=== PATIENT | female | born 1980 | race Caucasian/White ===

== ENCOUNTER 2023-02-03 09:44 | Inpatient (IN) | payer OTHER, SELFPAY ==
--- NOTE | 2023-01-28 10:46 | PCM.HP.BLA ---
History and Physical Date of Admission: 01/31/23 Pre-Op History and Physical HPI: The patient is a 42 year old female presenting for pre-operative visit. She is scheduled for and bilateral salpingectomy for repeat , AMA, CHTN, gestational diabetes, obesity and desires sterilization on January 31, 2023. Procedure discussed along with risks, benefits and complications. Other alternatives discussed for management. Consent form signed? Yes. PAST MEDICAL HISTORY Diagnosis Date ? Anemia ? Carpal tunnel syndrome ? Chronic hypertension during , antepartum 09/14/2022 ? Diabetes, gestational ? Diet controlled gestational diabetes mellitus (GDM) in third trimester 11/17/2022 ? HBV (hepatitis B virus) infection 2022 ? Heel spur ? Hepatitis B affecting 09/17/2022 ? Irregular menses ? Other specified viral warts ? Psoriasis ? Rosacea ? Urinary calculus, unspecified 2006 Renal stones PAST SURGICAL HISTORY Procedure Laterality Date ? DELIVERY ONLY 1996,2007,2012 , low cervical ? LITHOTRIPSY XTRCORP SHOCK WAVE Lithotripsy ? TONSILLECTOMY PRIMARY/SECONDARY <AGE 12 07/11/2002 Tonsillectomy Current Outpatient Medications Medication Sig Dispense Refill ? blood sugar diagnostic test strip 1 Strip four times daily. Use as instructed 120 Strip 9 ? Lancets lancets 1 Each four times daily. Use as instructed 120 Each 9 ? calcipotriene/betamethasone (ENSTILAR TOPICAL) Apply to affected area. (Patient not taking: Reported on 01/12/2023) ? aspirin, enteric coated (ECOTRIN LOW STRENGTH) 81 mg EC tablet Take 1 tablet by mouth once daily. 90 tablet 3 ? Blood Pressure Test Kit-Large (QUICK RESPONSE BP MONITOR) Use as directed 1 Each 0 ? prental multivitamin 27 mg iron- 800 mcg tablet Take 1 tablet by mouth once daily. ? Clobetasol Propionate 0.05 % topical foam Apply to affected area twice daily. ? metroNIDAZOLE 0.75 % cream No current facility-administered medications for this visit. ALLERGIES: Seasonal [Other] PERSONAL HISTORY: Social History Tobacco Use ? Smoking status: Former Years: 10.00 Types: Cigarettes Quit date: 09/29/2006 Years since quittin.3 ? Smokeless tobacco: Never Vaping Use ? Vaping Use: Never used Substance Use Topics ? Alcohol use: Not Currently Comment: rarely, NOT WHILE ? Drug use: No FAMILY HISTORY: FAMILY HISTORY Problem Relation Age of Onset ? No Known Problems Mother ? Asthma Father ? No Known Problems Sister ? Psoriasis Brother ? Rheumatologic disease Brother ? No Known Problems Brother ? No Known Problems Maternal Grandmother ? Lung Cancer Maternal Grandfather ? Breast Cancer Paternal Grandmother ? Diabetes Paternal Grandmother ? No Known Problems Paternal Grandfather ? Asthma Daughter REVIEW OF SYMPTOMS: negative except as noted above PHYSICAL EXAMINATION: VITALS: Blood pressure 118/82, last menstrual period 04/23/2022. GENERAL: The patient is well nourished, well hydrated in no acute distress. , The patient is oriented to time, place, and person. NECK: full range of motion IMPRESSION: 42-year-old G7, P5 at 38.1 weeks with gestational diabetes not controlled but at this point not placed on insulin, advanced maternal age, CHTN, obesity for repeat section and sterilization PLAN: Repeat section bilateral salpingectomy performed by Dr. Amna Garcia at 38.4 weeks gestation. Pt has been counseled on risks/benefits and alternatives of surgery including but not limited to anesthesia, bleeding, infection, injury to pelvic structures including bowel, bladder, ureters and vessels. Pt wishes to proceed with surgery at this time. Risk of blood transfusion reviewed with patient. Discussed that this is a permanent procedure and risk of regret was reviewed. I have reviewed and updated past medical and surgical history, medications and allergies Cata Golden MD
[2023-02-03] VITALS (21 sets, daily range): BP systolic 102–148; BP diastolic 52–83; PULSE 58–92; RESP 14–18; TEMP 3.1–37.5; O2SAT 96–98; BMI 44.0
--- NOTE | 2023-02-03 | FALS_PTH ---
PATIENT: FRANKY GAMINO LOC: [facility] U#:[id number] AGE/SX: 42/F ROOM: WP010 RE02/03/[address]: Dr. Amna Garcia MD : 1980 BED: 1 DIS: 02/04/2023 SPEC #: [id number] RECD: 02/04/23 09:52 STATUS: DANG ESCUDERO #: [id number] MALOU: 02/03/23 00:[address]: Amna Garcia DEPT: SURGICAL PATHOLOGY RECD BY: Reed Najera ENTERED: 02/04/23 09:52 SP TYPE: FALL TUBES OTHR DR: No Primary Care Phys Tissues: Fallopian tube Procedures: Surgery Specimen Level II HEADER OPERATION: Tubal ligation PRE-OP DIAGNOSIS: Sterilization TISSUE SUBMITTED: Fallopian tubes MICROSCOPIC DIAGNOSIS Bilateral fallopian tubes, salpingectomy: Bilateral fallopian tubes, no pathologic diagnosis. See comment. ARVIND:aruna 02/07/2023 COMMENT The right fallopian tube also shows focal decidual changes. MICROSCOPIC DESCRIPTION Slides are reviewed. GROSS DESCRIPTION Received in fixative is one container labeled with the patient's name and designated bilateral fallopian tubes, left suture. The specimen consists of bilateral fallopian tubes including fimbrial ends. The right fallopian tube measures 4.0 cm in length and up to 1.0 cm in diameter and the left fallopian tube measures 4.0 cm in length and 0.7 cm in diameter. Sections reveal unremarkable cut surfaces. Linemarker sections are submitted in two cassettes as follows: 1 - right fallopian tube, 2 - left fallopian tube. / SJ:rg 02/04/2023 TC:4 CPT: 83313 x2
[2023-02-03] MEDS: Lactated Ringers 1,000 ML 999 ML IV (10:30)
[2023-02-03 10:50] LABS: Absolute Lymphocyte Count 1.35 X10^3/uL (0.83-4.51); Absolute Neutrophil Count 5.1 X10^3/uL (2.0-7.7); Basophil# 0.07 X10^3/uL; Eosinophil# 0.05 X10^3/uL; Eosinophils% 0.7 % (0-5); Hematocrit 37.1 % (37-47); Lymphocyte # 1.35 X10^3/ul (0.83-4.51); Lymphocyte % 19.1 % (19-41); Mean Corp Hgb Conc 32.3 g/dL (32-36); Mean Corpuscular Hgb 31.3 pg (27.0-32.0); Mean Corpuscular Volume 96.9 fL (81-99); Monocyte% 5.7 % (0-10); NRBC Flagged by Analyzer 0 % (0-5); Neutrophil # 5.14 X10^3/uL (2.7-7.7); Neutrophil % 72.7 % (47-70); Platelet Count 237 K/mm3 (150-450); RBC Distribution Width CV 14.8 % (11.6-14.6); RBC Distribution Width SD 51.8 fl (35.1-43.9); Red Blood Count 3.83 M/mm3 (4.2-5.4); White Blood Count 7.1 K/mm3 (4.4-11.0)
[2023-02-03 11:30] LABS: Syphilis Antibodies Non-reactive
[2023-02-03 11:36] LABS: Bedside Glucose 92 mg/dL (74-106)
[2023-02-03] MEDS: Acetaminophen 500 MG Tablet 1000 MG PO ×3 (11:46→23:59)
[2023-02-03] MEDS: Sodium Citrate/Citric Acid 30 ML UDC PO (11:47)
[2023-02-03] MEDS: Ondansetron 4 MG/2 ML Vial IV (12:28)
[2023-02-03] MEDS: Oxytocin 15 Units/NS 250ml 15 UNITS/250 ML IV.SOLN 167 UNITS IV (12:52)
--- NOTE | 2023-02-03 13:19 | EX.PCM.OBRPT ---
Assessment & Plan (1) Previous delivery affecting : (2) Advanced maternal age (AMA), 40 years or greater: (3) 39 weeks gestation of : (4) Maternal obesity syndrome in third trimester: (5) Adult BMI 40.0-44.9 kg/sq m: (6) COVID-19 affecting in third trimester: Details Operative Information Date of Procedure: 02/03/23 Pre-Operative Diagnosis: gest DM, previous c/s, sterilization request Post-Operative Diagnosis: same Indications for : Repeat Elective Classification: Scheduled Procedure Type: low transverse (with bilateral salpingectomy) sewing line baler #1: Dianna Ibarra Type of Anesthesia: Spinal Anesthesiologist: Kwasi Carpenter Special Medications: duramorph Antibiotic Given: Ancef 3 grams IV x1 Drain: Sheridan to straight drain Estimated Blood Loss: 800 Fluids Replaced: 1000 Procedure Start Time: 12:47 Procedure Stop Time: 13:22 Time of Delivery: 12:51 Findings Description of Procedure: The patient was taken to the operating room. She was prepped and draped in the dorsal supine position with a leftward tilt. Orourke retention straps were used to reach tract the pannus. A Pfannenstiel skin incision was made approximately 2 cm above the symphysis pubis and carried through to underlying layer fascia with the scalpel. This was made through her prior existing scar. The fascia was incised incised in the midline and extended laterally with the Nino scissors. The fascia was dissected off the rectus muscles with blunt and sharp dissection. The rectus muscles were in the midline and the peritoneum was entered bluntly. The peritoneal incision was stretched and the bladder blade was placed. The uterine incision was made in a low transverse fashion with the scalpel and extended superiorly and inferiorly with blunt dissection. The amniotic membranes were ruptured bluntly and clear amniotic fluid returned. The infant's head was brought to the incision in the flexed position and delivered without difficulty. The remainder of the infant was delivered with gentle traction and fundal pressure in the standard fashion. The mouth and nares were bulb suctioned. The cord was clamped and cut as the was stimulated. Cord clamping was delayed. The infant was handed off to the waiting nursing staff. The placenta was delivered with fundal massage and gentle traction in the standard fashion. The uterus was left in the peritoneal cavity and cleared of all clots and debris. The cervix was dilated with a ring forcep. The uterine incision was closed with #1 Vicryl in a running locked fashion. A second layer of the same suture was used in an imbricating fashion. The incision was examined and was found to be hemostatic. Some Avril was placed over the uterine incision. Attention was then turned to the fallopian tubes. The left Lupien tube was identified and followed out to the fimbriated end. The LigaSure device was used to clamp, seal and transect the ligament the fallopian tube from the antimesenteric portion of the broad ligament. The tube was then amputated with the LigaSure from the cornual insertion. All the pedicles were hemostatic and the specimen was handed off. The same procedure was performed on the contralateral side and excellent hemostasis was noted. The uterine incision was reexamined and still found to be hemostatic. The rectus muscles were examined and any bleeding was Bovie cauterized. The parietal peritoneum and rectus muscles were closed en bloc with an 0 Vicryl running suture. The rectus fascia was examined and any bleeding was Bovie cauterized and the rectus fascia was closed with 0 PDS suture in a running standard fashion. The subcutaneous tissue was examining and any bleeding was Bovie cauterized. The subcutaneous tissue was reapproximated with 3-0 Vicryl suture. Some Avril was placed in the subcutaneous layer. The skin was closed in a subcuticular fashion by the ACCOUNTING ANALYST with me present in the labor and delivery suite. I performed the remainder of the procedure with assistance. All sponge, lap, and needle counts were correct. The patient was taken to her room for recovery in a stable condition. Presentation: Positive for Vertex Amniotic Membrane Rupture Type: Artificial Amniotic Fluid Description: Clear Placental Delivery Description: Expressed Placenta Disposition: [facility] Specimen(s) Sent to Pathology: bilateral fallopian tubes Cord Vessel Description: 3 Vessels Cord Entanglement: None Nuchal Cord Compression: Without compression A Gender: Male (1 minute): 8 (5 minute): 9 Delayed Cord Clamping: Yes Complications Complications: none
[2023-02-03] MEDS: Lactated Ringers 1,000 ML 100 ML IV (13:30)
[2023-02-03] MEDS: Ketorolac 30 MG/ML Syringe IV ×2 (14:41→22:22)
[2023-02-03 15:28] LABS: Bedside Glucose 86 mg/dL (74-106)
[2023-02-03] MEDS: Oxytocin 15 Units/NS 250ml 15 UNITS/250 ML IV.SOLN 83 UNITS IV (15:31)
[2023-02-03 15:38] LABS: Pathology Specimen OB SEE PATHOLOGY REPORT
[2023-02-03] MEDS: LACTATED RINGERS 500 ML 999 ML IV (20:42)
[2023-02-03] MEDS: 0.9% Saline Lock 10 ML Syringe IV (22:22)
--- NOTE | 2023-02-03 22:47 | NURSING ---
pt up to bathroom. Tolerated well.
[2023-02-04] VITALS (9 sets, daily range): BP systolic 107–130; BP diastolic 53–66; PULSE 65–87; RESP 16–18; TEMP 35.9–36.4; O2SAT 95–98
[2023-02-04] MEDS: Enoxaparin 40 MG/0.4 ML Syringe SC ×2 (01:35→13:28)
[2023-02-04] MEDS: LACTATED RINGERS 500 ML 999 ML IV (01:38)
[2023-02-04] MEDS: Ketorolac 30 MG/ML Syringe IV ×2 (04:46→10:21)
[2023-02-04] MEDS: 0.9% Saline Lock 10 ML Syringe IV (04:46)
[2023-02-04] MEDS: Acetaminophen 500 MG Tablet 1000 MG PO ×3 (06:00→18:39)
[2023-02-04 06:21] LABS: Hemoglobin 10.3 g/dL (12.0-15.0); Mean Corp Hgb Conc 32.2 g/dL (32-36); Mean Corpuscular Hgb 31.3 pg (27.0-32.0); Mean Corpuscular Volume 97.3 fL (81-99); Mean Platelet Vol. 10.8 fl (6.2-12.0); Platelet Count 180 K/mm3 (150-450); RBC Distribution Width CV 14.8 % (11.6-14.6); RBC Distribution Width SD 53.1 fl (35.1-43.9); Red Blood Count 3.29 M/mm3 (4.2-5.4); White Blood Count 7.6 K/mm3 (4.4-11.0)
--- NOTE | 2023-02-04 08:33 | PN.OBGYN_ITS ---
Subjective Subjective Patient is doing well. Pain is well controlled. She is ambulating and voiding without difficulty. She is tolerating regular diet without nausea or vomiting. She denies chest pain, shortness of breath, lightheadedness, dizziness. She feels her COVID symptoms are improving and feels like a mild cold. Lochia is normal. She desires to go home today. Objective Data Objective Data Vital Signs: Vital Signs Temp Pulse Resp BP Pulse Ox O2 Del Method 96.6 F L 65 18 115/55 L 95 Room Air 02/04/23 07:47 02/04/23 07:47 02/04/23 07:47 02/04/23 07:47 02/04/23 07:47 02/04/23 07:47 Oxygen Delivery Method Room Air Weight: 273 lb Body Mass Index (BMI) 44.0 Intake & Output: Intake and Output for Last 24 Hours 02/02/23 02/03/23 02/04/23 23:59 23:59 23:59 Intake Total 2986.67 / 2986.67 500 / 500 Output Total 1280 / 1280 675 / 675 Balance 1706.67 / 1706.67 -175 / -175 Lab / Micro Data 02/04/23 06:08 Labs: Laboratory Results - last 24 hr 02/03/23 10:30: WBC 7.1, RBC 3.83 L, Hgb 12.0, Hct 37.1, MCV 96.9, MCH 31.3, MCHC 32.3, RDW Std Deviation 51.8 H, RDW Coeff of Prateek 14.8 H, Plt Count 237, MPV 11.0, Immature Gran % (Auto) 0.800, Neut % (Auto) 72.7 H, Lymph % (Auto) 19.1, Stewart % (Auto) 5.7, Eos % (Auto) 0.7, Baso % (Auto) 1.0, Absolute Neuts (auto) 5.1, Absolute Lymphs (auto) 1.35, Nucleated RBC % 0, Syphilis Total Ab Non- reactive, Blood Type B POSITIVE, Antibody Screen NEGATIVE 02/03/23 10:53: POC Glucose 92 02/03/23 15:00: POC Glucose 86 02/04/23 06:08: WBC 7.6, RBC 3.29 L, Hgb 10.3 L, Hct 32.0 L, MCV 97.3, MCH 31.3, MCHC 32.2, RDW Std Deviation 53.1 H, RDW Coeff of Prateek 14.8 H, Plt Count 180, MPV 10.8 Physical Exam Const alert and no apparent distress General Appearance: comfortable Assessment & Plan (1) COVID-19 affecting in third trimester: (2) Adult BMI 40.0-44.9 kg/sq m: (3) Delivery by section: PLAN: She is postoperative day 1 from a repeat section with sterilization. She desires discharge today. Lab work reviewed. VSS. Discharge instructions reviewed. She has follow-up with Dr. Garcia in the o ffice next week for an incision check.
--- NOTE | 2023-02-04 09:32 | DCINST_ITS ---
Discharge Instructions Diet Discharge Diet: No restrictions Activity Discharge Activity: May Not Drive and May Shower May resume sexual activity in: 6 weeks Ice area for (Minutes): 15 Weight Bearing Status: Weight bearing as tolerated Lifting Restrictions: nothing heavier than baby Dressing / Incision Call your doctor if your incision/area has: Continuous Slow Oozing, Sudden Increased Bleeding, Increased Pain/ Swelling, Increased Redness, Foul Smelling Discharge and Swelling at the incision site Call your doctor if you observe: Fever of 101 or Higher, Coldness, Increased Pain, Numbness or Tingling, Change in Color, Inability to urinate, Inability to have a bowel movement, Using more than 1 pad per hour, Shortness of breath, Dizziness, Fainting spells, Swelling in the ankles, Chest pain, Increased palpitations (irregular heartbeat), Calf discomfort and Uncontrolled pain Suture Line Care: Avoid Pulling/Pushing and Avoid Pinching/Bending Remove Dressing in: 1 week Cleanse incision/area with: Soap & Water Follow Up Care Please Follow Up With: Amna Garcia MD When: 1 week incision check 6 week visit Test Results: Test results from this visit will be discussed in further detail at your follow- up appointment, if applicable. Discharge Plan Admission Admit Date/Time: 02/03/23 09:44 Primary Reason for Your Visit: delivery Attending Provider: Amna Garcia Primary Care Provider: Care PhysicianJohanne Primary Instructions Patient Instructions: After a Discharge Orders/Prescriptions Prescriptions: New oxycodone-acetaminophen [Percocet] 5-325 mg tablet 1 tab PO Q6H PRN (Reason: pain) 7 Days Qty: 7 0RF ibuprofen 600 mg tablet 600 mg PO Q6H PRN (Reason: pain) Qty: 30 0RF docusate sodium [Colace] 100 mg capsule 100 mg PO BID Qty: 30 0RF Referrals / Follow Up: Care Physician,No Primary [Primary Care Provider] - Disposition Disposition (needs filled in before D/C Order can be placed): Home, Self Care
[2023-02-04 09:37] LABS: Bedside Glucose 89 mg/dL (74-106)
[2023-02-04] MEDS: Senna/Docusate Sodium 1 Tablet PO (10:21)
[2023-02-04] MEDS: Ibuprofen 600 MG Tablet PO (16:43)
== END 2023-02-04 19:05 | disposition home or self-care (01) | DRG 783 ==
PROVIDERS: Admitting Provider Obstetrics & Gynecology; Referring Provider Obstetrics & Gynecology; Visit Provider Obstetrics & Gynecology
PROC: 10D00Z1 Extraction of Products of Conception, Low, Open Approach (ICD-10-PCS; CPT 59514; principal; 2023-02-03 11:45)
DX: O34.219 Maternal care for unspecified type scar from previous cesarean delivery (principal); U07.1 COVID-19; O10.92 Unspecified pre-existing hypertension complicating childbirth; O98.52 Other viral diseases complicating childbirth; O99.214 Obesity complicating childbirth; E66.9 Obesity, unspecified; Z37.0 Single live birth; Z3A.38 38 weeks gestation of pregnancy; O24.410 Gestational diabetes mellitus in pregnancy, diet controlled; Z30.2 Encounter for sterilization; Z87.891 Personal history of nicotine dependence
CPT/HCPCS: 59025; 59050; 82962; 85025; 85027; 86780; 86850; 86900; 86901; 88302; 99221; J7120; A4216; G0378; J2405